=== PATIENT | female | born 1980 | race African-American/Black ===

== ENCOUNTER 2016-06-30 08:00 | Emergency (ER) | payer SELFPAY ==
[~2016-06-30] VITALS: Ht 170.2 cm; Wt 109.8 kg
--- NOTE | 2016-06-30 08:26 | EKG ---
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
[2016-06-30 08:41] LABS: HEMOGLOBIN ISTAT 11.2 gm/dL; POTASSIUM ISTAT 4.1 mmol/L (3.5-5.0)
[2016-06-30 08:45] VITALS: BP 138/76
--- NOTE | 2016-06-30 09:06 | RAD ---
Indication chest discomfort. A single view of the chest was obtained. Comparison is made to a study 01/31/2015. The heart and pulmonary vessels appear normal. The lungs are clear. There is no pleural fluid or pneumothorax. A significant change relative to the previous exam is not seen. IMPRESSION: No acute or focal process. No significant change
--- NOTE | 2016-06-30 09:28 | ED.ADGEN ---
Past History Past Medical History: Hypertension, Hypothyroid Past Surgical History: Tubal ligation Alcohol Use: None Drug Use: None Adult General HPI HPI Patient is a 36-year-old female presents emergency department complaining of intermittent left arm pain for the last 1 week. Patient states that the pain starts in her shoulder radiates down her arm. This morning she felt a few moments of "chest pressure" and became concerned and comes in emergency department. Patient has a history of hypertension but no other cardiovascular disease. She does still continue to smoke. She denies any other recent illness or chest pain or dyspnea currently. Review of Systems Review of Systems Constitutional: Denies fever or chills [] Eyes: Denies change in visual acuity, redness, or eye pain [] HENT: Denies nasal congestion or sore throat [] Respiratory: Denies cough or shortness of breath [] Cardiovascular: No additional information not addressed in HPI [] GI: Denies abdominal pain, nausea, vomiting, bloody stools or diarrhea [] : Denies dysuria or hematuria [] Musculoskeletal: Denies back pain or joint pain [] Integument: Denies rash or skin lesions [] Neurologic: Denies headache, focal weakness or sensory changes [] Endocrine: Denies polyuria or polydipsia [] Allergies Allergies Allergies Coded Allergies Type Severity Reaction Last Updated Verified No Known Drug Allergies 06/30/16 No Physical Exam Physical Exam Constitutional: Well developed, well nourished, no acute distress, non-toxic appearance. [] HENT: Normocephalic, atraumatic, bilateral external ears normal, oropharynx moist, no oral exudates, nose normal. [] Eyes: PERRLA, EOMI, conjunctiva normal, no discharge. [] Neck: Normal range of motion, no tenderness, supple, no stridor. [] Cardiovascular:Heart rate regular rhythm, no murmur [] Lungs & Thorax: Bilateral breath sounds clear to auscultation [] Abdomen: Bowel sounds normal, soft, no tenderness, no masses, no pulsatile masses. [] Skin: Warm, dry, no erythema, no rash. [] Back: No tenderness, no CVA tenderness. [] Extremities: No tenderness, no cyanosis, no clubbing, ROM intact, no edema. [] Neurologic: Alert and oriented X 3, normal motor function, normal sensory function, no focal deficits noted. [] Psychologic: Affect normal, judgement normal, mood normal. [] Current Patient Data Vital Signs Vital Signs Date Time Temp Pulse Resp B/P Pulse Ox O2 Delivery O2 Flow Rate FiO2 06/30/16 08:45 63 18 138/76 95 Room Air 06/30/16 08:07 98.3 Lab Results Laboratory Tests Test 06/30/16 08:27 06/30/16 08:29 POC Hemoglobin 11.2gm/dL POC Hematocrit 33% POC Sodium 141mmol/L (135-145) POC Potassium 4.1mmol/L (3.5-5.0) POC Chloride 105mmol/L (98-110) POC Total CO2 23mmol/L (23-32) Anion Gap 18mmol/L (6-14) H POC Blood Urea Nitrogen 12mg/dL (8-26) POC Creatinine 1.0mg/dL (0.5-1.4) Glucose Level 92mg/dL (60-99) POC Ionized Calcium (Felisha) 1.15mmol/L (1.13-1.32) POC Troponin I 0.00ng/ml (<0.08) EKG EKG EKG interpreted by me, normal sinus rhythm, 79 beats for minute, no ST segment elevation, normal axis. [] Radiology/Procedures Radiology/Procedures Indication chest discomfort. A single view of the chest was obtained. Comparison is made to a study 01/31/2015. The heart and pulmonary vessels appear normal. The lungs are clear. There is no pleural fluid or pneumothorax. A significant change relative to the previous exam is not seen. IMPRESSION: No acute or focal process. No significant change DICTATED AND SIGNED BY: LUIS MORALES MD DATE: 06/30/16 0903 CC: MURPHY ALICEA MD; PCP,NO ~ [] Course & Med Decision Making Course & Med Decision Making Pertinent Labs and Imaging studies reviewed. (See chart for details) Patient is a very reassuring workup here in the Emergency department. I do believe that her symptoms are more consistent with a radiculopathy rather than a cardiac origin. However, I have asked her to follow-up with her doctor for further workup and evaluation as needed and return emergency department sooner she develops any new or worsening symptoms. [] Final Impression Final Impression Radiculopathy [] Problems: Dragon Disclaimer Dragon Disclaimer This electronic medical record was generated, in whole or in part, using a voice recognition dictation system. MURPHY ALICEA MD Jun 30, 2016 09:28
== END 2016-06-30 09:12 | disposition home or self-care (01) ==
LOC: ER 08:00
DX: M54.13 Radiculopathy, cervicothoracic region (principal); E03.9 Hypothyroidism, unspecified; I10 Essential (primary) hypertension
CPT/HCPCS: 71010; 80047; 84484; 93005; 99284-25

== ENCOUNTER → 2019-03-25 | Outpatient (CLI) | payer BC ==
--- NOTE | 2019-03-25 14:53 | RAD ---
CHEST PA LATERAL History: Cough for one week Comparison: June 30, 2016 Findings: 2 views of the chest are submitted. There is no infiltrate, pneumothorax, or effusion. Pericardial cardiac silhouette is within normal limits in size. There is some atherosclerotic calcification near the aortic arch. Impression: 1. There is no radiographic evidence of acute cardiopulmonary disease. Electronically signed by: Michele Paris MD (03/25/2019 2:51 PM) [id number]
== END | disposition home or self-care (01) ==
LOC: PMG 14:03
PROVIDERS: ATTEND Registered Nurse
DX: I70.0 Atherosclerosis of aorta (principal)
CPT/HCPCS: 71046